=== PATIENT | female | born 1955 | race Caucasian/White ===

== ENCOUNTER 2019-08-12 09:00 | Inpatient (IN) ==
[2019-08-12 09:21] LABS: Basophils # 0.1 K/mcL (0.0-0.2); Basophils % 0.5 %; Eosinophils # 0.1 K/mcL (0.0-0.6); Eosinophils % 0.7 %; Hematocrit 40.1 % (35.3-44.9); Hemoglobin 13.8 g/dL (11.5-15.4); Immature Granulocytes % 0.6 % (0-4); Lymphocytes # 1.9 K/mcL (0.6-4.6); Lymphocytes % 17.4 %; Mean Corpuscular HGB Conc 34.4 g/dL (31.6-35.5); Mean Corpuscular Hemoglobin 35.1 pg (28.0-33.3); Mean Platelet Volume 8.5 fL (9.4-12.4); Monocytes # 0.6 K/mcL (0.0-1.3); Neutrophils # 8.4 K/mcL (1.6-8.9); Platelet Count 265 K/mcL (140-400); Red Blood Count 3.93 M/mcL (3.82-4.97); Red Cell Distribution Width 13.4 % (11.5-14.5); Segmented Neutrophils % 75.8 %; White Blood Count 11.1 K/mcL (4.3-11.1)
[2019-08-12 09:25] LABS: INR 1.1; Prothrombin Time 12.1 Seconds (9.4-12.1)
[2019-08-12] MEDS ORDERED: 0.9 % Sodium Chloride 1,000 ML ONE (12:36)
[2019-08-12] MEDS ORDERED: *HR* FentaNYL (PF) 100 MCG/2 ML VIAL ONE (14:49)
[2019-08-12] MEDS ORDERED: Naloxone 0.4 MG/ML INJ IVP PRN (15:34)
[2019-08-12] MEDS ORDERED: Ondansetron 4 MG/2 ML VIAL IVP PRN (15:34)
[2019-08-12] MEDS ORDERED: Ipratropium/Albuterol Neb 3 ML IH PRN (15:35)
[2019-08-12] MEDS ORDERED: *HR* Propofol 200 MG/20 ML VIAL IVP ONE (15:50)
[2019-08-12] MEDS ORDERED: *HR* Succinylcholine 200 MG/10 ML VIAL IVP ONE (15:50)
[2019-08-12] MEDS ORDERED: Ondansetron 4 MG/2 ML VIAL IVP ONE (15:50)
[2019-08-12] MEDS ORDERED: *HR* Rocuronium Bromide 50 MG/5 ML VIAL IVC ONE (15:50)
[2019-08-12] MEDS ORDERED: Lidocaine 2% Syringe 100 MG/5 ML IV ONE (15:50)
[2019-08-12] MEDS ORDERED: *HR* HYDROcodone/Acet 5/325 mg TABLET PO PRN (17:11)
[2019-08-12] MEDS ORDERED: Acetaminophen 325 MG TABLET PO PRN (17:11)
[2019-08-12] MEDS ORDERED: *HR* LORazepam 2 MG/ML VIAL IVP PRN ×3 (18:08)
[2019-08-12] MEDS: Budesonide/Formoterol 160/4.5 1 PUFF INH IH SCH (20:02)
[2019-08-13] MEDS: Aspirin Enteric Coated 81 MG Tablet PO SCH (08:04)
[2019-08-13] MEDS: PARoxetine 20 MG TABLET PO SCH (08:05)
[2019-08-13] MEDS: Budesonide/Formoterol 160/4.5 1 PUFF INH IH SCH ×2 (10:16→20:06)
[2019-08-13] MEDS: Tiotropium 18 MCG inhalation IH SCH (10:16)
[2019-08-13] MEDS ORDERED: Thiamine (B-1) 100 MG, Folic Acid 1 MG, MVI, adult with vitamin K 10 ML in 0.9 % Sodi... IVPB SCH (18:00)
[2019-08-14 02:30] LABS: Basophils % 0.5 %; Eosinophils # 0.1 K/mcL (0.0-0.6); Eosinophils % 1.1 %; Hematocrit 35.7 % (35.3-44.9); Hemoglobin 11.9 g/dL (11.5-15.4); Immature Granulocytes % 0.5 % (0-4); Lymphocytes % 30.6 %; Mean Corpuscular HGB Conc 33.3 g/dL (31.6-35.5); Mean Corpuscular Hemoglobin 34.9 pg (28.0-33.3); Mean Corpuscular Volume 104.7 fL (83.0-100.0); Monocytes # 0.7 K/mcL (0.0-1.3); Monocytes % 10.9 %; Neutrophils # 3.7 K/mcL (1.6-8.9); Platelet Count 216 K/mcL (140-400); Red Blood Count 3.41 M/mcL (3.82-4.97); Red Cell Distribution Width 13.6 % (11.5-14.5); Segmented Neutrophils % 56.4 %; White Blood Count 6.5 K/mcL (4.3-11.1)
[2019-08-14 02:51] LABS: BUN/Creatinine Ratio 15 (6-26); Blood Urea Nitrogen 8 mg/dL (8-23); Calcium 7.7 mg/dL (8.6-10.3); Carbon Dioxide 25 mEq/L (23-29); Chloride 104 mEq/L (98-107); Glucose 104 mg/dL (70-105); Osmolality,Calculated 279 (280-300); Potassium 3.5 mEq/L (3.5-5.1); Sodium 135 mEq/L (136-145); eGFR For African Americans > 60 (> 60); eGFR For Non-African Americans > 60 (> 60)
[2019-08-14] MEDS: Budesonide/Formoterol 160/4.5 1 PUFF INH IH SCH (07:35)
[2019-08-14] MEDS: Tiotropium 18 MCG inhalation IH SCH (07:35)
[2019-08-14] MEDS: Aspirin Enteric Coated 81 MG Tablet PO SCH (08:38)
[2019-08-14] MEDS: PARoxetine 20 MG TABLET PO SCH (08:38)
[2019-08-14] MEDS ORDERED: Thiamine (B-1) 100 MG TABLET PO SCH (09:00)
[2019-08-14] MEDS ORDERED: Folic Acid 1 MG TABLET PO SCH (09:00)
[2019-08-14] MEDS ORDERED: Multivit/Ca/Min/Fe/FA 1 TAB TABLET PO SCH (09:00)
[2019-08-14 11:25] VITALS: BP 101/66
== END 2019-08-14 13:15 | disposition home or self-care (01) | DRG 200 ==
LOC: SUATTDRO → RAD 09:00 → 2ANU 09:00 → SUATTDRO 08-13 10:50
PROVIDERS: ADMIT Internal Medicine; ATTEND Internal Medicine

== ENCOUNTER 2019-09-26 07:33 | Inpatient (IN) ==
[2019-09-26] MEDS ORDERED: Lidocaine -MPF 4% 5 ML AMPUL ONE (07:44)
[2019-09-26] MEDS ORDERED: Acetaminophen IV 1,000 MG/100 ML INFUS..BTL ONE (07:46)
[2019-09-26] MEDS ORDERED: *HR* Vasopressin 20 UNIT/ML VIAL ONE (07:46)
[2019-09-26] MEDS ORDERED: *HR* Rocuronium Bromide 50 MG/5 ML VIAL ONE (07:52)
[2019-09-26] MEDS ORDERED: Dexamethasone 4 MG/ML VIAL ONE ×2 (07:52→09:45)
[2019-09-26] MEDS ORDERED: Lidocaine -MPF 2% 2 ML VIAL ONE ×2 (07:52→08:40)
[2019-09-26] MEDS ORDERED: Ondansetron 4 MG/2 ML VIAL ONE (07:52)
[2019-09-26] MEDS ORDERED: *HR* HYDROMORPHONE 2 MG/ML VIAL ONE (07:52)
[2019-09-26] MEDS ORDERED: *HR* Succinylcholine 200 MG/10 ML VIAL IVP ONE (07:52)
[2019-09-26] MEDS ORDERED: *HR* FentaNYL (PF) 100 MCG/2 ML VIAL ONE (07:52)
[2019-09-26] MEDS ORDERED: CeFAZolin Syr 2,000MG/20 ML 2,000 MG/20 ML SYRINGE IVPB ONE (07:53)
[2019-09-26] MEDS ORDERED: *HR* Midazolam HCl 2 MG/2 ML VIAL ONE (07:58)
[2019-09-26] MEDS ORDERED: Ringers Solution, Lactated 1,000 ML IVC SCH (08:00)
[2019-09-26] MEDS ORDERED: *HR* OxyCODONE Immed Rel 5 MG TABLET PO PRN (08:19)
[2019-09-26] MEDS ORDERED: *HR* Promethazine 25 MG/ML VIAL IVP PRN (08:19)
[2019-09-26] MEDS ORDERED: ACETAMINOPHEN IVPB ONE (08:19)
[2019-09-26] MEDS ORDERED: *HR* Labetalol 20 MG/4 ML SYRINGE IVP PRN (08:19)
[2019-09-26] MEDS ORDERED: Pregabalin 75 MG CAPSULE PO ONE (08:19)
[2019-09-26] MEDS ORDERED: Famotidine 20 MG/2 ML VIAL IVP ONE (08:19)
[2019-09-26] MEDS ORDERED: *HR* HYDROmorphone (PF) 1 MG/ML SYRINGE IVP PRN (08:19)
[2019-09-26] MEDS ORDERED: *HR* Magnesium Sulfate 1 GM/2 ML VIAL ONE (08:26)
[2019-09-26] MEDS ORDERED: *HR* PHENYLEPHRINE 1,000 MCG/10 ML SYRINGE IVP ONE ×3 (09:31→10:13)
[2019-09-26] MEDS ORDERED: Naloxone 0.4 MG/ML INJ IVP PRN (11:51)
[2019-09-26] MEDS ORDERED: QUEtiapine Fumarate 25 MG TABLET PO PRN (11:51)
[2019-09-26] MEDS ORDERED: hydrOXYzine pamoate 25 MG CAPSULE PO PRN (11:51)
[2019-09-26] MEDS: Ketorolac 15 MG/ML VIAL IVP SCH ×2 (13:17→16:57)
[2019-09-26] MEDS: 0.9 % Sodium Chloride 1,000 ML IVC SCH (13:17)
[2019-09-26] MEDS: *HR* Heparin 5,000 UNIT/ML VIAL SQ SCH ×2 (13:18→21:28)
[2019-09-26] MEDS: Gabapentin 300 MG CAPSULE PO SCH ×2 (13:18→21:28)
[2019-09-26] MEDS: Ipratropium/Albuterol Neb 3 ML IH SCH ×3 (14:06→20:12)
[2019-09-26] MEDS: Famotidine 20 MG TABLET PO SCH (16:56)
[2019-09-26] MEDS: Budesonide/Formoterol 160/4.5 1 PUFF INH IH SCH (20:12)
[2019-09-26] MEDS: *HR* HYDROcodone/Acet 5/325 mg TABLET PO PRN (21:28)
[2019-09-26] MEDS: Sennosides/Docusate Sodium TABLET PO SCH (21:28)
[2019-09-27] MEDS: Ipratropium/Albuterol Neb 3 ML IH SCH ×6 (00:14→20:21)
[2019-09-27] MEDS: 0.9 % Sodium Chloride 1,000 ML IVC SCH (00:25)
[2019-09-27] MEDS: Ketorolac 15 MG/ML VIAL IVP SCH ×4 (00:25→18:20)
[2019-09-27 05:18] LABS: Hematocrit 33.4 % (35.3-44.9); Hemoglobin 11.1 g/dL (11.5-15.4); Mean Corpuscular HGB Conc 33.2 g/dL (31.6-35.5); Mean Corpuscular Hemoglobin 34.3 pg (28.0-33.3); Mean Corpuscular Volume 103.1 fL (83.0-100.0); Mean Platelet Volume 9.5 fL (9.4-12.4); Platelet Count 197 K/mcL (140-400); Red Blood Count 3.24 M/mcL (3.82-4.97); Red Cell Distribution Width 13.7 % (11.5-14.5)
[2019-09-27 05:24] LABS: White Blood Count 12.9 K/mcL (4.3-11.1)
[2019-09-27 05:37] LABS: % Iron Saturation 12 % (15-50); BUN/Creatinine Ratio 18 (6-26); Blood Urea Nitrogen 12 mg/dL (8-23); Calcium 7.9 mg/dL (8.6-10.3); Carbon Dioxide 22 mEq/L (23-29); Chloride 103 mEq/L (98-107); Glucose 144 mg/dL (70-105); Iron 35 mcg/dL (50-170); Magnesium 1.8 mg/dL (1.6-2.6); Osmolality,Calculated 280 (280-300); Potassium 3.3 mEq/L (3.5-5.1); Sodium 134 mEq/L (136-145); Transferrin 215 mg/dL (203-362); eGFR For African Americans > 60 (> 60); eGFR For Non-African Americans > 60 (> 60)
[2019-09-27] MEDS: *HR* Heparin 5,000 UNIT/ML VIAL SQ SCH ×3 (05:55→21:16)
[2019-09-27] MEDS: Tiotropium 18 MCG inhalation IH SCH (07:20)
[2019-09-27] MEDS: Budesonide/Formoterol 160/4.5 1 PUFF INH IH SCH ×2 (07:20→20:21)
[2019-09-27] MEDS ORDERED: Thiamine (B-1) 100 MG in 0.9 % Sodium Chloride 50 ML IVPB ONE (08:44)
[2019-09-27] MEDS ORDERED: Iron Sucrose Complex 400 MG in 0.9 % Sodium Chloride 250 ML IVPB ONE (08:44)
[2019-09-27] MEDS ORDERED: Folic Acid 1 MG in 0.9 % Sodium Chloride 50 ML IVPB ONE (08:44)
[2019-09-27] MEDS: PARoxetine HCL 10 MG TABLET PO SCH (08:45)
[2019-09-27] MEDS: Gabapentin 300 MG CAPSULE PO SCH ×2 (08:45→21:16)
[2019-09-27] MEDS: Sennosides/Docusate Sodium TABLET PO SCH ×2 (08:45→21:16)
[2019-09-27] MEDS: Aspirin Enteric Coated 81 MG Tablet PO SCH (08:45)
[2019-09-27] MEDS: Famotidine 20 MG TABLET PO SCH ×2 (08:46→15:41)
[2019-09-27] MEDS: *HR* HYDROcodone/Acet 5/325 mg TABLET PO PRN (13:17)
[2019-09-27] MEDS: Metoprolol XL (24 HR) Succ 25 MG TAB.ER.24H PO SCH (15:41)
[2019-09-28] MEDS: Ipratropium/Albuterol Neb 3 ML IH SCH ×4 (00:03→11:29)
[2019-09-28] MEDS: Ketorolac 15 MG/ML VIAL IVP SCH ×2 (00:26→05:50)
[2019-09-28 02:46] LABS: BUN/Creatinine Ratio 23 (6-26); Blood Urea Nitrogen 18 mg/dL (8-23); Calcium 7.9 mg/dL (8.6-10.3); Carbon Dioxide 23 mEq/L (23-29); Chloride 109 mEq/L (98-107); Glucose 102 mg/dL (70-105); Osmolality,Calculated 286 (280-300); Potassium 5.4 mEq/L (3.5-5.1); Sodium 137 mEq/L (136-145); eGFR For African Americans > 60 (> 60); eGFR For Non-African Americans > 60 (> 60)
[2019-09-28] MEDS: *HR* Heparin 5,000 UNIT/ML VIAL SQ SCH (05:51)
[2019-09-28 07:20] VITALS: BP 127/92
[2019-09-28] MEDS: Aspirin Enteric Coated 81 MG Tablet PO SCH (08:25)
[2019-09-28] MEDS: PARoxetine HCL 10 MG TABLET PO SCH (08:26)
[2019-09-28] MEDS: Metoprolol XL (24 HR) Succ 25 MG TAB.ER.24H PO SCH (08:26)
[2019-09-28] MEDS: Gabapentin 300 MG CAPSULE PO SCH (08:26)
[2019-09-28] MEDS: Famotidine 20 MG TABLET PO SCH (08:26)
[2019-09-28] MEDS: Sennosides/Docusate Sodium TABLET PO SCH (08:27)
[2019-09-28] MEDS: Budesonide/Formoterol 160/4.5 1 PUFF INH IH SCH (08:30)
[2019-09-28] MEDS: Tiotropium 18 MCG inhalation IH SCH (08:32)
[2019-09-28] MEDS ORDERED: Propranolol LA (24 HR) 60 MG CAP.SA.24H PO SCH (09:15)
[2019-09-28] MEDS: *HR* HYDROcodone/Acet 5/325 mg TABLET PO PRN (11:58)
[2019-09-30] MEDS ORDERED: NON-FORMULARY MEDICATION 1 EACH EACH (Alendronate Sodium [Fosamax] 70 MG) PO SCH (11:21)
== END 2019-09-28 12:42 | disposition home or self-care (01) | DRG 165 ==
LOC: SAMDAY 07:33 → 2NNU 11:48
PROVIDERS: ADMIT Thoracic Surgery (Cardiothoracic Vascular Surgery); ATTEND Thoracic Surgery (Cardiothoracic Vascular Surgery)